=== PATIENT | female | born 1995 | race Caucasian/White ===

== ENCOUNTER 2021-11-18 06:56 | Emergency (ER) | payer OTHER ==
--- NOTE | 2021-11-18 07:13 | ED Physician Documentation ---
PD HPI URI - Stated complaint Stated Complaint: C+, CANT SWALLOW - Chief complaint Chief Complaint: General - History obtained from History obtained from: Patient - History of Present Illness Timing - onset: How many days ago (few) Timing duration: Days (few) Timing details: Abrupt onset, Still present Associated symptoms: Fever, Chills, Sore throat (this is her main symptom), Productive cough. No: Chest pain, Dyspnea, NVD Contributing factors: Sick contact (her had COVID a week ago or so, gotten from coworkers. Patient ill the past few days, presumed COVID. Went to [facility] ER for throat pain largely. Had positive COVID test. No Rx.) Similar symptoms before: Diagnosis (tested positive for COVID at [facility] ER 2 days ago.) Recently seen: Emergency Dept Review of Systems Constitutional: reports: Fever, Chills, Myalgias Nose: reports: Congestion Throat: reports: Sore throat, Swollen tonsils Cardiac: denies: Chest pain / pressure Respiratory: reports: Cough. denies: Dyspnea, Wheezing GI: denies: Nausea, Vomiting, Diarrhea : denies: Dysuria Skin: reports: Rash PD PAST MEDICAL HISTORY - Past Medical History Cardiovascular: None Respiratory: None Endocrine/Autoimmune: None - Present Medications Home Medications: Ambulatory Orders Medication Instructions Recorded Confirmed HYDROcod/ACETAM 5/325 [[place] 5/325] 1 ea PO Q6H PRN #18 tablet 11/18/21 dexAMETHasone [Decadron] 4 mg PO DAILY #6 tablet 11/18/21 diphenhydrAMINE ELIXIR [Benadryl 25 mg PO Q6H PRN #240 ml 11/18/21 Elixir] - Allergies Allergies/Adverse Reactions: Allergies Allergy/AdvReac Type Severity Reaction Status Date / Time No Known Drug Allergies Allergy Verified 11/18/21 07:13 PD ED PE NORMAL - Vitals Vital signs reviewed: Yes - General General: Alert and oriented X 3, No acute distress, Well developed/nourished - HEENT HEENT: Ears normal. No: Pharynx benign (very enlaged tonsils, almost touching in midline, without peritonsillar edema nor exudate. Tissue pink. ) - Neck Neck: Supple, no meningeal sign, Other (mild anterior nodes. ) - Cardiac Cardiac: RRR, No murmur - Respiratory Respiratory: Clear bilaterally - Abdomen Abdomen: Soft, Non tender, No organomegaly - Back Back: No CVA TTP - Derm Derm: Normal color, Warm and dry, No rash - Neuro Neuro: Alert and oriented X 3, No motor deficit, Normal speech Eye Opening: Spontaneous Motor: Obeys Commands Verbal: Oriented GCS Score: 15 Results - Vitals Vitals: Vital Signs - 24 hr 11/18/21 07:21 Temperature 36.3 C L Heart Rate 96 Respiratory 16 Rate Blood Pressure 127/85 H O2 Saturation 97 Oxygen O2 Source Room air - Labs Labs: Laboratory Tests 11/18/21 07:21 Group A Strep Rapid Negative PD MEDICAL DECISION MAKING - ED course Complexity details: re-evaluated patient (briefly discussed MAB, but she said she was okay. ), considered differential (has COVID, so most symptoms seem reasonably attributable to that. Has very sore throat and swollen tonsils, so can test separately for Strep to see if abx useful. Otherwise can Rx with steroids, liquid benadryl, Hydrocodone. ), d/w patient Departure - Departure Disposition: 01 Home, Self Care Clinical Impression: Pharyngitis with viral syndrome, COVID Condition: Stable Record reviewed to determine appropriate education?: Yes Instructions: ED Pharyngitis Viral Prescriptions: diphenhydrAMINE ELIXIR [Benadryl Elixir] 25 mg PO Q6H PRN #240 ml PRN Reason: Pain dexAMETHasone [Decadron] 4 mg PO DAILY #6 tablet HYDROcod/ACETAM 5/325 [[place] 5/325] 1 ea PO Q6H PRN #18 tablet PRN Reason: Pain Comments: Your rapid strep test is negative, so it doesn't seem there would be improvement from antibiotics for your symptoms. The swab we did today will be cultured as well and will result in couple of days; this would show if there is any non- Group A strep bacteria, and we will call you if it shows any bacterial growth. The Decadron steroid should help with the swelling of the tonsils and upper airways, onset through the day today and continue it for several days. Add Benadryl liquid (swallow it slowly so to have local effect in the throat) as needed. Tylenol every 4-6 hours for pain/fevers/aches. Add Hydrocodone as needed for worse pain. I would anticipate improvement over the next several days, but the pain from the tonsils should lessen through the day today. I transmitted you scripts to the pharmacy. I am prescribing a short course of narcotic pain medication for you. These are potentially dangerous and addictive medications that should be used carefully. These medications may constipate you. Take an yinp-[id number] stool softener such as docusate twice daily with plenty of water while taking these medications. If you go 24 hours without a bowel movement, take iyrx-[id number] MiraLAX, per package instructions. Do not drink or drive while taking these medications. If you received narcotic or sedating medications while in the emergency department do not drive for 24 hours. Store this medication in a safe, secure place and out of reach of children. It is a violation of federal law to give or sell this medication to another person or to use in a manner other than prescribed. The ED will not refill narcotic prescriptions, including prescriptions lost or stolen. You can dispose of unwanted medications at the [facility]'s office or at several pharmacies such as [facility]. Discharge Date/Time: 11/18/21 08:39
[2021-11-18] MEDS ORDERED: CHERRY SYRUP 10 ML UDC PO ONE (07:30)
[2021-11-18] MEDS ORDERED: diphenhydrAMINE ELIXIR 25 MG/10 ML UDC PO STA (07:30)
[2021-11-18] MEDS ORDERED: DEXAMETHASONE 10 MG/ML VIAL PO STA (07:30)
[2021-11-18] MEDS ORDERED: LIDOCAINE VISCOUS 2% 15 ML UDC MM STA (07:30)
[2021-11-18] MEDS ORDERED: HYDROcod/ACETAM 5/325 MG TABLET PO STA (07:33)
[2021-11-18 07:40] VITALS: BP 127/85
[2021-11-18 07:51] LABS: RAPID STREP SCREEN Negative (Negative)
== END 2021-11-18 08:39 | disposition home or self-care (01) ==
LOC: ED 06:56
DX: U07.1 COVID-19 (principal); B34.9 Viral infection, unspecified; J02.8 Acute pharyngitis due to other specified organisms
CPT/HCPCS: 87070; 87430; 99283; A9270

== ENCOUNTER 2022-09-26 20:05 | Emergency (ER) | payer OTHER ==
[2022-09-26] MEDS ORDERED: IBUPROFEN 600 MG TABLET PO STA (20:14)
[2022-09-26] MEDS ORDERED: DEXAMETHASONE 10 MG/ML VIAL PO STA (20:22)
[2022-09-26] MEDS ORDERED: SODIUM CHLORIDE 0.9% 1,000 ML IV STA (20:22)
[2022-09-26] MEDS ORDERED: CHERRY SYRUP 10 ML UDC PO ONE (20:22)
[2022-09-26] MEDS ORDERED: diphenhydrAMINE ELIXIR 25 MG/10 ML UDC PO STA (20:25)
--- NOTE | 2022-09-26 20:26 | ED Physician Documentation ---
History of Present Illness - Stated complaint Stated Complaint: CONGESTION/FEVER - Chief complaint Chief Complaint: General - Additonal information Additional information: 27-year-old female presents emergency department for evaluation of 3 days body aches headache chills and fever. Temperature of 39.2 on presentation. She reports a sore throat making swallowing difficult. She denies any cough abdominal pain nausea or vomiting. Denies possibility . She is vaccinated for COVID and had it in October 2021. She has chronically enlarged tonsils that always hurt when she gets sick. Review of Systems Constitutional: reports: Fever, Chills, Myalgias, Fatigue Nose: reports: Rhinorrhea / runny nose, Congestion Throat: reports: Sore throat, Swollen tonsils Respiratory: denies: Dyspnea, Cough GI: reports: Reviewed and negative : reports: Reviewed and negative Skin: reports: Reviewed and negative Musculoskeletal: denies: Neck pain PD PAST MEDICAL HISTORY - Past Medical History Cardiovascular: None Respiratory: None Neuro: None Endocrine/Autoimmune: None GI: None SEARCH OPTIMIZATION ANALYST: None : None HEENT: None Psych: None Musculoskeletal: None Derm: None - Past Surgical History Past Surgical History: No - Present Medications Home Medications: Ambulatory Orders Medication Instructions Recorded Confirmed No Known Home Medications 09/26/22 09/26/22 - Allergies Allergies/Adverse Reactions: Allergies Allergy/AdvReac Type Severity Reaction Status Date / Time No Known Drug Allergies Allergy Verified 09/26/22 20:15 - Social History Does the pt smoke?: No Smoking Status: Never smoker Does the pt drink ETOH?: No Does the pt have substance abuse?: No - Immunizations Immunizations are current?: Yes - POLST Patient has POLST: No PD ED PE NORMAL - General General: Alert and oriented X 3, No acute distress - HEENT HEENT: Ears normal (Left TM with erythema and small effusion), Moist mucous membranes. No: Pharynx benign (Kissing tonsils without exudate. Uvula is midline. No soft palate asymmetry or swelling.) - Neck Neck: No: No adenopathy (Small left-sided tender cervical lymph nodes are noted) - Cardiac Cardiac: RRR, No murmur - Respiratory Respiratory: No respiratory distress, Clear bilaterally - Abdomen Abdomen: Normal bowel sounds, Soft, Non tender - Back Back: No CVA TTP, No spinal TTP - Derm Derm: Normal color, Warm and dry - Extremities Extremities: No deformity - Neuro Neuro: Alert and oriented X 3, guest services lead 2-12 intact Eye Opening: Spontaneous Motor: Obeys Commands Verbal: Oriented GCS Score: 15 Results - Vitals Vitals: Vital Signs - 24 hr 09/26/22 09/26/22 20:13 21:18 Temperature 39.2 C H 37.7 C Heart Rate 128 H 109 H Respiratory 14 16 Rate Blood Pressure 120/76 116/65 O2 Saturation 97 98 Oxygen O2 Source Room air - Labs Labs: Laboratory Tests 09/26/22 09/26/22 20:11 20:37 Nasal Adenovirus (PCR) NOT DETECTED Nasal B. parapertussis DNA (PCR) NOT DETECTED Nasal Coronavir 229E PCR NOT DETECTED Nasal Coronavir HKU1 PCR NOT DETECTED Nasal Coronavir NL63 PCR NOT DETECTED Nasal Coronavir OC43 PCR NOT DETECTED Nasal Enterovir/Rhinovir PCR NOT DETECTED Nasal Influenza B PCR NOT DETECTED Nasal Influenza A PCR NOT DETECTED Nasal Parainfluen 1 PCR NOT DETECTED Nasal Parainfluen 2 PCR NOT DETECTED Nasal Parainfluen 3 PCR NOT DETECTED Nasal Parainfluen 4 PCR NOT DETECTED Nasal RSV (PCR) NOT DETECTED Nasal B.pertussis DNA PCR NOT DETECTED Nasal C.pneumoniae (PCR) NOT DETECTED Dung Human Metapneumo PCR NOT DETECTED Nasal M.pneumoniae (PCR) NOT DETECTED Nasal SARS-CoV-2 (PCR) NOT DETECTED Group A Strep Rapid Negative PD MEDICAL DECISION MAKING - ED course Complexity details: reviewed results, re-evaluated patient, considered differential, d/w patient ED course: This is a well-appearing though obese 27-year-old female who comes to the emergency department for 3 days of myalgias, fatigue, fever, sore throat, and headache. She has no cough vomiting diarrhea or urinary symptoms. On exam she presents febrile and tachycardic but otherwise well-appearing. She is normotensive. Cardiopulmonary auscultation was unremarkable with the exception of tachycardia. Her ENT exam reveals large red kissing tonsils but no exudate. There are some mild tender anterior cervical lymphadenopathy. She reports that she has chronically enlarged tonsils at baseline. Rapid strep was performed today and was negative. Will defer antibiotics unless culture is positive but given the pharyngitis component she was administered 10 mg of Decadron here in the emergency department. She also does have some small left- sided erythema of her ear as well as a small effusion. My suspicion for a bacterial otitis media is rather low though. I have given her a dose of Benadryl to help with congestion and eustachian tube dysfunction. We did obtain a respiratory PCR. I discussed with her that I felt she likely had a viral syndrome either influenza or possibly even COVID or RSV. We discussed the possibility of outpatient treatment for COVID with Paxlovid or Tamiflu should she be influenza positive but she has declined that at this time should she be positive. She simply would like to feel better therefore we are gave her some IV fluids, Benadryl and Decadron. On reevaluation she was feeling better with improved fever and tachycardia. She was dc home in stable condition. emergent return precautions discussed Departure - Departure Disposition: Home, Self Care Clinical Impression: Flu-like symptoms, Febrile illness, acute Condition: Stable Record reviewed to determine appropriate education?: Yes Comments: Chani you are seen today in the emergency department because for a few days you have had some body aches fevers chills headache and a sore throat. I suspect you have a viral or flulike illness. I will call you in the morning with any pertinent positive results on the respiratory PCR panel. Here in the emergency department we gave you some IV fluids Benadryl and ibuprofen and your vital signs seem to have improved and you are feeling better. Over the next few days I do recommend that you take Benadryl 50 mg once or twice daily. This will help with congestion and help reduce the effusion behind your left ear. I would also drink plenty of fluids. You can take 600 mg of ibuprofen 2-3 times a day for fever and body aches or alternate with 500 mg of Tylenol. We did discuss the possibility that should you have a positive influenza or COVID result you could be a candidate for outpatient oral antiviral therapy but you have declined this which I think is reasonable given that you are otherwise healthy. If at any point you find that your symptoms are worsening, you have fainting episodes, severe chest pain or shortness of air please return immediately to the ER for a second evaluation Discharge Date/Time: 09/26/22 21:18
[2022-09-26 20:52] LABS: RAPID STREP SCREEN Negative (Negative)
[2022-09-26 21:14] LABS: CORONAVIRUS 229E-RESP PCR NOT DETECTED; CORONAVIRUS HKU1-RESP PCR NOT DETECTED; CORONAVIRUS NL63-RESP PCR NOT DETECTED; CORONAVIRUS OC43-RESP PCR NOT DETECTED; HUMAN METAPNEUMOVIRUS NOT DETECTED; RHINOVIRUS/ENTEROVIRUS NOT DETECTED; SARS-CoV-2 -RESP PCR PANEL NOT DETECTED
[2022-09-26 21:15] LABS: B. PARAPERTUSSIS- RESP PCR PAN NOT DETECTED; B. PERTUSSIS- RESP PCR PANEL NOT DETECTED; C. PNEUMONIAE- RESP PCR PANEL NOT DETECTED; INFLUENZA A- RESP PCR PANEL NOT DETECTED; INFLUENZA B - RESP PCR PANEL NOT DETECTED; M. PNEUMONIAE- RESP PCR PANEL NOT DETECTED; PARAINFLUENZA VIRUS 1 NOT DETECTED; PARAINFLUENZA VIRUS 2 NOT DETECTED; PARAINFLUENZA VIRUS 3 NOT DETECTED; PARAINFLUENZA VIRUS 4 NOT DETECTED; RSV- RESP PCR PANEL NOT DETECTED
[2022-09-26 21:19] VITALS: BP 116/65
== END 2022-09-26 21:18 | disposition home or self-care (01) ==
LOC: ED 20:05
DX: R50.9 Fever, unspecified (principal); J02.9 Acute pharyngitis, unspecified; R51.9 Headache, unspecified; R00.0 Tachycardia, unspecified; R53.83 Other fatigue; M79.10 Myalgia, unspecified site; H69.82 Other specified disorders of Eustachian tube, left ear
CPT/HCPCS: 87070; 87430; 87633; 99282; 99283; A9270

== ENCOUNTER 2022-12-12 08:00 | Outpatient (CLI) | payer OTHER ==
[2022-12-12 16:26] LABS: BILIRUBIN,URINE NEGATIVE (NEGATIVE); GLUCOSE, URINE (UA) 500 mg/dL (NEGATIVE); KETONES,URINE (UA) NEGATIVE (NEGATIVE); LEUKOCYTE ESTERASE, URINE NEGATIVE (NEGATIVE); NITRITE,URINE NEGATIVE (NEGATIVE); OCCULT BLOOD,URINE NEGATIVE (NEGATIVE); PROTEIN,URINE NEGATIVE (NEGATIVE); UROBILINOGEN,URINE 0.2 (NORMAL) E.U./dL (NORMAL)
[2022-12-12 16:49] LABS: CLARITY,URINE HAZY (CLEAR)
[2022-12-12 16:50] LABS: BACTERIA,URINE Few /HPF (None Seen); RBC,URINE 0-5 /HPF (0-5); SQUAMOUS EPITHELIAL CELL,UR FEW Squamous (<= Few); WBC,URINE 0-3 /HPF (0-5)
== END 2022-12-12 23:59 | disposition home or self-care (01) ==
LOC: LAB.WC 08:00
PROVIDERS: ATTEND Obstetrics & Gynecology
DX: Z34.90 Encounter for supervision of normal pregnancy, unspecified, unspecified trimester (principal)
CPT/HCPCS: 81001; 87086

== ENCOUNTER 2022-12-16 09:28 | Outpatient (CLI) | payer OTHER ==
[2022-12-16 12:11] LABS: BASOPHILS # (AUTO) 0.1 10^3/uL (0.0-0.1); BASOPHILS % (AUTO) 0.5 %; EOSINOPHILS # (AUTO) 0.3 10^3/uL (0.0-0.7); EOSINOPHILS % (AUTO) 2.2 %; HCT - HEMATOCRIT 42.2 % (37.0-47.0); HGB - HEMOGLOBIN 13.2 g/dL (12.0-16.0); LYMPHOCYTES % (AUTO) 23.1 %; MEAN CORPUSCULAR HEMOGLOBIN 25.7 pg (27.0-31.0); MEAN CORPUSCULAR HGB CONC 31.3 g/dL (32.0-36.0); MEAN CORPUSCULAR VOLUME 82.3 fL (81.0-99.0); MONOCYTES # (AUTO) 0.9 10^3/uL (0.0-1.0); MONOCYTES % (AUTO) 6.9 %; NEUTROPHILS # (AUTO) 8.7 10^3/uL (1.5-6.6); NEUTROPHILS % (AUTO) 66.8 %; PLT - PLATELET COUNT 336 10^3/uL (130-450); RED BLOOD COUNT 5.13 10^6/uL (4.20-5.40)
[2022-12-17 06:09] LABS: HBsAG SCREEN Negative (Negative)
[2022-12-17 08:10] LABS: HCV AB <0.1 s/co ratio (0.0-0.9); VARICELLA-ZOSTER AB IGG 1061 index (Immune >165)
[2022-12-17 09:10] LABS: RPR Non Reactive (Non Reactive)
[2022-12-18 00:08] LABS: HIV SCREEN 4TH GENERATION Non Reactive (Non Reactive)
== END 2022-12-16 09:29 | disposition home or self-care (01) ==
LOC: LAB.N 09:28
PROVIDERS: ATTEND Obstetrics & Gynecology
DX: Z34.90 Encounter for supervision of normal pregnancy, unspecified, unspecified trimester (principal)
CPT/HCPCS: 36415; 85025; 86592; 86762; 86787; 86803; 86850; 86900; 86901; 87340; 87389

== ENCOUNTER 2022-12-31 22:05 | Outpatient (CLI) | payer OTHER ==
--- NOTE | 2023-01-01 08:45 | Ultrasound Report ---
PROCEDURE: OB First Trimester w/TV INDICATIONS: POSITIVE TEST OUTSIDE/PRIOR DATING DATA: Last menstrual period (LMP): 10/12/2022. LMP-based estimated date of delivery (SHELBY): 07/19/2023. First dating scan (date and location): To 723. Estimated date of delivery (SHELBY) from first dating scan: 07/19/2023. The below data below was generated using the study generated SHELBY of 07/19/2023 TECHNIQUE: Real-time scanning was performed of the fetus and maternal pelvic organs, with image documentation. Endovaginal scanning was also performed to better visualize the fetus and maternal ovaries. COMPARISON: None FINDINGS: Embryo: Single intrauterine gestational sac is seen with fetus seen. Wilkerson-rump length measures 4.66 cm. Estimated gestational age is 11 weeks, 3 days. Heart rate: 162 bpm. There is a small subchorionic hemorrhage measures 1.97 x 1.74 x 3.01 cm in size. Measurement variability in dating: +/- 4 weeks by LMP, +/- 7 days by mean sac diameter (use before 6 weeks gestation if crown-rump length not able to be measured), +/- 5 days by crown-rump length (6-12 weeks gestation). Maternal organs: Ovaries the visualized and are within normal limits. A left-sided corpus luteum is noted and measures 2.4 x 1.9 x 2.1 cm in size.. IMPRESSION: 1. Single live intrauterine gestation with fetus seen. heart rate is 162 bpm. Estimated gestati onal age is 11 weeks, 3 days. 2. Small subchorionic hemorrhage as above. 3. Left-sided corpus luteum as above. Reviewed by: Sj Diaz MD on 01/01/2023 8:43 AM PST Approved by: Sj Diaz MD on 01/01/2023 8:43 AM PST Station ID: [id number]
== END 2022-12-31 22:06 | disposition home or self-care (01) ==
LOC: DI 22:05
PROVIDERS: ATTEND Obstetrics & Gynecology
DX: O20.9 Hemorrhage in early pregnancy, unspecified (principal); O34.81 Maternal care for other abnormalities of pelvic organs, first trimester; N83.12 Corpus luteum cyst of left ovary; Z3A.11 11 weeks gestation of pregnancy

== ENCOUNTER 2023-01-06 09:07 | Outpatient (CLI) | payer OTHER | END 2023-01-06 09:08 | disposition home or self-care (01) | LOC: LAB.N 09:07 | PROVIDERS: ATTEND Obstetrics & Gynecology | DX: E66.01 Morbid (severe) obesity due to excess calories (principal); Z86.32 Personal history of gestational diabetes | CPT/HCPCS: 36415; 82950 ==

== ENCOUNTER 2023-02-27 11:44 | Outpatient (CLI) | payer OTHER ==
[2023-03-01 20:07] LABS: AFP MOM 0.82 (.); AFP VALUE 37.4 ng/mL (.); DIA MOM 0.96 (.); DIA VALUE 136.86 pg/mL (.); DSR (BY AGE) 1 IN 835 (.); DSR (SECOND TRIMESTER) 1 IN 3328 (.); GEST. AGE ON COLLECTION DATE 19.7 WEEKS (.); HCG MOM 1.56 (.); HCG VALUE 32605 mIU/mL (.); INSULIN DEP DIABETES No (.); MATERNAL AGE AT EDD 28.3 yr (.); MULTIPLE GESTATION No (.); OPEN SPINA BIFIDA RISK 1 IN 10000 (.); RACE Caucasian (.); RESULTS Report (.); TEST RESULTS *Screen Negative* (.); TRISOMY 18 RISK Not increased (.); UE3 MOM 1.02 (.); UE3 VALUE 1.94 ng/mL (.); WEIGHT 208 lbs (.)
== END 2023-02-27 11:45 | disposition home or self-care (01) ==
LOC: LAB 11:44
PROVIDERS: ATTEND Obstetrics & Gynecology
DX: O09.892 Supervision of other high risk pregnancies, second trimester (principal)
CPT/HCPCS: 36415; 81511

== ENCOUNTER 2023-03-04 12:39 | Outpatient (CLI) | payer OTHER ==
--- NOTE | 2023-03-04 15:36 | Ultrasound Report ---
PROCEDURE: OB Detailed Eval INDICATIONS: SUPERVISION OF OUTSIDE/PRIOR DATING DATA: Last menstrual period (LMP): 10/12/2022. LMP-based estimated date of delivery (SHELBY): 07/19/2023. First dating scan (date and location): 12/31/2022. Estimated date of delivery (SHELBY) from first dating scan: 07/19/2023. The below data below was generated using the ultrasound SHELBY of 07/19/2023 TECHNIQUE: Real-time scanning was performed of the fetus, with image documentation and biometric measurements. Endovaginal scanning: Not performed COMPARISON: 12/31/2022 FINDINGS: General: A single living intrauterine gestation is present. Presentation: Variable Placenta: Placental position is anterior, without previa. Amniotic fluid index: 14.5 cm, 53rd percentile for gestational age. heart rate: 153 beats per minute. Maternal cervical canal: 6.1 cm long; normal length is 2.5 cm or more. biometrics: Biparietal diameter: 4.7 cm, 20 weeks 1 day Head circumference: 17.2 cm, 19 weeks 6 days Abdominal circumference: 14.9 cm, 20 weeks 1 day Femur length: 3.2 centers, 20 weeks Estimated gestational age from initial scan: 20 weeks 3 days. Composite gestational age from present scan: 20 weeks 0 days Estimated weight and percentile: 332 g, 20th percentile Measurement variability in biometric dating: +/- 10 days from 12-20 weeks gestation, +/- 2 weeks from 20-30 weeks gestation, +/- 3 weeks at 30 weeks gestation or later. Anatomic survey: Neuro: Ventricles are normal at less than 10 mm. Cisterna magna is normal at 3-11 mm. Cerebellum i s normal in size and morphology. Nuchal skin fold: Normal at less than 6 mm between 14 and 20 weeks gestational age. Face: Nose and lips, facial profile are normal. Spine: No evidence for spina bifida. Heart: Not well visualized Diaphragm: Diaphragm is intact. Stomach: Left-sided stomach is present. Kidneys: No hydronephrosis. Normal is less than 5 mm in 2nd trimester, less than 7 mm in 3rd trimester. Cord: 3 vessel cord has orthotopic insertion. Bladder: Normal in size. Extremities: All 4 extremities are visualized. IMPRESSION: Single living intrauterine at 20 weeks 3 days, SHELBY of 07/19/2023. cardiac structures not visualized due to position. Short-term follow-up recommended. Othe rwise, normal ultrasound. Reviewed by: Dwight Cassidy on 03/04/2023 3:35 PM PDT Approved by: Dwight Cassidy on 03/04/2023 3:35 PM PDT Station ID: [id number]
== END 2023-03-04 12:40 | disposition home or self-care (01) ==
LOC: DI 12:39
PROVIDERS: ATTEND Obstetrics & Gynecology
DX: O09.892 Supervision of other high risk pregnancies, second trimester (principal); Z3A.20 20 weeks gestation of pregnancy

== ENCOUNTER 2023-03-20 11:31 | Outpatient (CLI) | payer OTHER ==
--- NOTE | 2023-03-20 13:35 | Ultrasound Report ---
PROCEDURE: OB F/U or Repeat INDICATIONS: SUPERVISION OF OUTSIDE/PRIOR DATING DATA: Last menstrual period (LMP): 10/12/2022. LMP-based estimated date of delivery (SHELBY): 07/19/2023. First dating scan (date and location): 12/31/2022. Estimated date of delivery (SHELBY) from first dating scan: 07/19/2023 (working SHELBY). TECHNIQUE: Real-time scanning was performed of the fetus, with image documentation COMPARISON: 03/04/2023 FINDINGS: General: A single living intrauterine gestation is present. Presentation: Breech Placenta: Placental position is anterior, without previa. Amniotic fluid index: 14.4 cm, within normal limits heart rate: 155 beats per minute. Maternal cervical canal: 4.3 cm long; normal length is 2.5 cm or more. Estimated gestational age on current scan is 22 weeks and 5 days. Right ovary is not well seen on toran gan's study. Cardiac structures are well seen. Other: Not applicable. IMPRESSION: Living intrauterine gestation with working SHELBY of 07/19/2023. Four-chamber view and outfl ow tracts are seen on today's study, completing anatomic survey. Reviewed by: Nikunj Tapia MD on 03/20/2023 1:34 PM PDT Approved by: Nikunj Tapia MD on 03/20/2023 1:34 PM PDT Station ID: [id number]
== END 2023-03-20 11:32 | disposition home or self-care (01) ==
LOC: DI 11:31
PROVIDERS: ATTEND Obstetrics & Gynecology
DX: O09.892 Supervision of other high risk pregnancies, second trimester (principal); O32.1XX0 Maternal care for breech presentation, not applicable or unspecified; Z3A.22 22 weeks gestation of pregnancy

== ENCOUNTER 2023-05-26 08:15 | Outpatient (CLI) | payer OTHER ==
--- NOTE | 2023-05-27 10:43 | Ultrasound Report ---
PROCEDURE: OB Biophysical Profile INDICATIONS: GESTATIONAL DIABETES OUTSIDE/PRIOR DATING DATA: Last menstrual period (LMP): 10/12/2022. LMP-based estimated date of delivery (SHELBY): 07/19/2023. First dating scan (date and location): 12/31/2022. Estimated date of delivery (SHELBY) from first dating scan: 07/19/2023. The below data below was generated using the working SHELBY of 07/19/2023 TECHNIQUE: Real-time scanning was performed of the fetus, with image documentation and biometric moni surements. Biophysical profile was also obtained. COMPARISON: OB ultrasound, 03/20/2023, 03/04/2023 and 12/31/2022. FINDINGS: General: A single living intrauterine gestation is present. Presentation: Transverse, head to the maternal left Placenta: Placental position is anterior, without previa. Amniotic fluid index: 15.4 cm; largest pocket 4.49 cm. heart rate: 147 beats per minute. Maternal cervical canal: Closed measuring 4.6 cm long; normal length is 2.5 cm or more. biometrics: Biparietal diameter: 33 weeks 4 days Head circumference: 33 weeks 4 days Abdominal circumference: 33 weeks 3 days Femur length: 31 weeks 4 days Estimated gestational age from initial scan: 32 weeks 2 days. Composite gestational age from present scan: 32 weeks 4 days Estimated weight and percentile: 2047 g; 55.5% Measurement variability in biometric dating: +/- 10 days from 12-20 weeks gestation, +/- 2 weeks from 20-30 weeks gestation, +/- 3 weeks at 30 weeks gestation or later. Biophysical profile: Tone: 2 points. Movement: 2 points. Respiration: 2 points. Largest pocket of fluid: 2 points. IMPRESSION: 1. Single living IUP with appropriate interval growth. 2. The estimated weight is 2047 g, 55.5% for gestational age. 3. biophysical profile score 8 out of 8. 4. Normal LISA. Reviewed by: Timothy Solis MD on 05/27/2023 10:42 AM PDT Approved by: Timothy Solis MD on 05/27/2023 10:42 AM PDT Station ID: [id number]
== END 2023-05-26 08:16 | disposition home or self-care (01) ==
LOC: DI 08:15
PROVIDERS: ATTEND Obstetrics & Gynecology
DX: O24.419 Gestational diabetes mellitus in pregnancy, unspecified control (principal); Z3A.32 32 weeks gestation of pregnancy

== ENCOUNTER 2023-05-26 09:15 | Outpatient (CLI) | payer OTHER ==
--- NOTE | 2023-05-27 10:48 | Ultrasound Report ---
PROCEDURE: OB F/U or Repeat INDICATIONS: GESTATIONAL DIABETES OUTSIDE/PRIOR DATING DATA: Last menstrual period (LMP): 10/12/2022. LMP-based estimated date of delivery (SHELBY): 07/19/20. First dating scan (date and location): 12/31/2022. Estimated date of delivery (SHELBY) from first dating scan: 07/131023. The below data below was generated using the working SHELBY of 07/19/2023 TECHNIQUE: Real-time scanning was performed of the fetus, with image documentation and biometric measurements. Endovaginal scanning: Not performed. COMPARISON: OB ultrasound, 03/20/2023, 03/04/2023 and 12/31/2022. FINDINGS: FINDINGS: General: A single living intrauterine gestation is present. Presentation: Transverse, head to the maternal left Placenta: Placental position is anterior, without previa. Amniotic fluid index: 15.4 cm; largest pocket 4.49 cm. heart rate: 147 beats per minute. Maternal cervical canal: Closed measuring 4.6 cm long; normal length is 2.5 cm or more. biometrics: Biparietal diameter: 33 weeks 4 days Head circumference: 33 weeks 4 days Abdominal circumference: 33 weeks 3 days Femur length: 31 weeks 4 days Estimated gestational age from initial scan: 32 weeks 2 days. Composite gestational age from present scan: 32 weeks 4 days Estimated weight and percentile: 2047 g; 55.5% Measurement variability in biometric dating: +/- 10 days from 12-20 weeks gestation, +/- 2 weeks from 20-30 weeks gestation, +/- 3 weeks at 30 weeks gestation or later. IMPRESSION: 1. Single living IUP with appropriate interval growth. 2. The estimated weight is 2047 g, 55.5% for gestational age. 3. Normal LISA. Reviewed by: Timothy Solis MD on 05/27/2023 10:47 AM PDT Approved by: Timothy Solis MD on 05/27/2023 10:47 AM PDT Station ID: [id number]
== END 2023-05-26 23:59 | disposition home or self-care (01) ==
LOC: DI 09:15
PROVIDERS: ATTEND Obstetrics & Gynecology
DX: O24.419 Gestational diabetes mellitus in pregnancy, unspecified control (principal); Z3A.32 32 weeks gestation of pregnancy

== ENCOUNTER 2023-05-29 16:39 | Outpatient (CLI) | payer OTHER ==
[2023-05-29 16:58] VITALS: BP 98/55
--- NOTE | 2023-05-29 17:23 | PROCEDURE REPORT ---
- HPI Current EDU 07/19/23 Gestation 32 Weeks and 5 Days 4 Para 3 Vital Signs Temperature 98 F 05/29/23 16:54 Heart Rate 93 05/29/23 16:54 Respiratory Rate 18 05/29/23 16:54 Blood Pressure 98/55 L 05/29/23 16:54 O2 Saturation 100 05/29/23 16:54 Temperature 98 F 05/29/23 16:54 Heart Rate 93 05/29/23 16:54 Respiratory Rate 18 05/29/23 16:54 Blood Pressure 98/55 L 05/29/23 16:54 O2 Saturation 100 05/29/23 16:54 If not protocol: Oxygen Flow, liters/minute - NST Procedure NST Procedure Start Date 05/29/23 Start Time 16:50 Vibroacoustic Stimulation Used No Patient States Movement Yes - Results and Plan Plan: Patient is a 28-year-old -0-0-3 at 32 weeks 5 days gestation here for scheduled NST. NST Performed 05/29/2023 NST Read 05/29/2023 FHT: 145 bpm baseline, moderate variability, accelerations present, no decelerations. Reactive NST Birney: Quiescent Diagnosis 32 weeks gestation Gestational diabetes Continue with twice-weekly NST.
== END 2023-05-29 17:15 | disposition home or self-care (01) ==
LOC: WFO 16:39 → FBP 16:41 → WFO 17:15
PROVIDERS: ATTEND Obstetrics & Gynecology
DX: O24.419 Gestational diabetes mellitus in pregnancy, unspecified control (principal); Z3A.32 32 weeks gestation of pregnancy
CPT/HCPCS: 59025

== ENCOUNTER 2023-06-05 09:00 | Outpatient (CLI) | payer OTHER ==
[2023-06-05 09:31] VITALS: BP 105/52
--- NOTE | 2023-06-05 17:50 | PROCEDURE REPORT ---
- HPI Diagnosis/Indication for NST: Gestational Diabetes Current EDU 07/19/23 Gestation 33 Weeks and 5 Days 4 Para 3 Vital Signs Temperature 98.1 F 06/05/23 09:17 Heart Rate 72 06/05/23 09:17 Respiratory Rate 18 06/05/23 09:17 Blood Pressure 105/52 L 06/05/23 09:17 Temperature 98.1 F 06/05/23 09:40 Heart Rate 72 06/05/23 09:40 Respiratory Rate 18 06/05/23 09:40 Blood Pressure 105/52 L 06/05/23 09:40 O2 Saturation If not protocol: Oxygen Flow, liters/minute - NST Procedure NST Procedure Start Date 06/05/23 Start Time 09:11 Stop Time 09:35 Vibroacoustic Stimulation Used No Patient States Movement Yes - Results and Plan Plan: Patient is a 28-year-old -0-0-3 at 33 weeks 5 days gestation here for kerrie eduled NST. NST Performed 06/05/2023 NST Read 06/05/2023 FHT: 140 bpm baseline, moderate variability, accelerations present, no decelerations. Reactive NST Tavares: Quiescent Diagnosis 33 weeks gestation Gestational diabetes Continue with twice-weekly NST.
== END 2023-06-05 09:57 | disposition home or self-care (01) ==
LOC: WFO 09:00 → FBP 09:02 → WFO 09:57
PROVIDERS: ATTEND Obstetrics & Gynecology
DX: O24.419 Gestational diabetes mellitus in pregnancy, unspecified control (principal); Z3A.33 33 weeks gestation of pregnancy
CPT/HCPCS: 59025

== ENCOUNTER 2023-06-09 16:03 | Outpatient (CLI) | payer OTHER ==
--- NOTE | 2023-06-10 10:36 | Ultrasound Report ---
PROCEDURE: OB Biophysical Profile INDICATIONS: GESTATIONAL DIABETES OUTSIDE/PRIOR DATING DATA: Last menstrual period (LMP): 10/12/2022. LMP-based estimated date of delivery (SHELBY): 07/19/2023. First dating scan (date and location): 12/31/2022 Estimated date of delivery (SHELBY) from first dating scan: 07/19/2023. The below data below was generated using the ultrasound SHELBY of 07/19/2023 TECHNIQUE: Real-time scanning was performed of the fetus, with image documentation. Biophysical pro file was also obtained. Endovaginal scanning: Not performed. COMPARISON: OB ultrasound 06/02/2023 FINDINGS: General: A single living intrauterine gestation is present. Presentation: Transverse, head to maternal right Placenta: Placental position is anterior, without previa. Amniotic fluid index: 16.7 cm, normal for gestational age. heart rate: 145 beats per minute. Maternal cervical canal: Closed. Estimated gestational age from initial scan: 34 weeks 2 days. Biophysical profile: Tone: 2 points. Movement: 2 points. Respiration: 2 points. Largest pocket of fluid: 2 points. Umbilical artery Doppler: Systolic/diastolic ratio 2.6 of the cord insertion, 3.3 at the midpo rtion, and 2.3 at the placental insertion IMPRESSION: 1.Single live intrauterine . 2.Biophysical profile score 8 of 8. 3.Umbilical artery Doppler is within normal limits with preserved diastolic flow. Reviewed by: Rosalino Francois MD on 06/10/2023 10:35 AM PDT Approved by: Rosalino Francois MD on 06/10/2023 10:35 AM PDT Station ID: [id number]
== END 2023-06-09 16:04 | disposition home or self-care (01) ==
LOC: DI 16:03
PROVIDERS: ATTEND Obstetrics & Gynecology
DX: O24.419 Gestational diabetes mellitus in pregnancy, unspecified control (principal); Z3A.34 34 weeks gestation of pregnancy

== ENCOUNTER 2023-06-09 16:54 | Outpatient (CLI) | payer OTHER ==
[2023-06-09 17:16] VITALS: BP 108/53
--- NOTE | 2023-06-10 09:55 | PROCEDURE REPORT ---
- HPI Diagnosis/Indication for NST: Gestational Diabetes Current EDU 07/19/23 Gestation 34 Weeks and 2 Days 4 Para 3 Vital Signs Temperature 98.2 F 06/09/23 17:08 Heart Rate 73 06/09/23 17:08 Respiratory Rate 16 06/09/23 17:08 Blood Pressure 108/53 L 06/09/23 17:08 Temperature 98.2 F 06/09/23 17:08 Heart Rate 73 06/09/23 17:08 Respiratory Rate 16 06/09/23 17:08 Blood Pressure 108/53 L 06/09/23 17:08 O2 Saturation If not protocol: Oxygen Flow, liters/minute - NST Procedure NST Procedure Start Date 06/09/23 Start Time 17:00 Stop Time 17:25 Vibroacoustic Stimulation Used No Patient States Movement Yes 34+2 Gestational diabetes reactive NST 140, moderate variability, +accels, no decels
== END 2023-06-09 17:35 | disposition home or self-care (01) ==
LOC: WFO 16:54 → FBP 16:55 → WFO 17:35
PROVIDERS: ATTEND Obstetrics & Gynecology Obstetrics
DX: O24.419 Gestational diabetes mellitus in pregnancy, unspecified control (principal); Z3A.34 34 weeks gestation of pregnancy
CPT/HCPCS: 59025

== ENCOUNTER 2023-06-16 16:00 | Outpatient (CLI) | payer OTHER ==
--- NOTE | 2023-06-17 15:58 | Ultrasound Report ---
PROCEDURE: OB Biophysical Profile INDICATIONS: GESTATIONAL DIABETES OUTSIDE/PRIOR DATING DATA: Last menstrual period (LMP): 10/12/2022. LMP-based estimated date of delivery (SHELBY): 07/19/2023. First dating scan (date and location): 12/31/2022. Estimated date of delivery (SHELBY) from first dating scan: 07/19/2023. The below data below was generated using the ultrasound/clinical SHELBY of 07/19/2023 TECHNIQUE: Real-time scanning was performed of the fetus, with image documentation and biometric moni surements. Biophysical profile was also obtained. COMPARISON: OB ultrasound 06/09/2023 FINDINGS: General: A single living intrauterine gestation is present. Presentation: Vertex Placenta: Placental position is anterior, without previa. Amniotic fluid index: 18.9 cm, upper limits of normal for gestational age. heart rate: 133 beats per minute. Maternal cervical canal: 6 cm long; normal length is 2.5 cm or more. biometrics: Estimated gestational age from initial scan: 35 2 days +/- 10 days from 12-20 weeks gestation, +/- 2 weeks from 20-30 weeks gestation, +/- 3 weeks at 30 wee ks gestation or later. Biophysical profile: Tone: 2 points. Movement: 2 points. Respiration: 2 points. Largest pocket of fluid: 2 points. Umbilical artery Doppler: 2.1, 2.4, 2.4 IMPRESSION: Single live intrauterine patency with ultrasound gestational age of 35 weeks 2 days. LISA 18.9 cm. Reviewed by: Amber Jay MD on 06/17/2023 3:57 PM PDT Approved by: Amber Jay MD on 06/17/2023 3:57 PM PDT Station ID: [id number]
== END 2023-06-16 16:01 | disposition home or self-care (01) ==
LOC: DI 16:00
PROVIDERS: ATTEND Obstetrics & Gynecology
DX: O24.419 Gestational diabetes mellitus in pregnancy, unspecified control (principal); Z3A.35 35 weeks gestation of pregnancy

== ENCOUNTER 2023-06-16 16:44 | Outpatient (CLI) | payer OTHER ==
[2023-06-16 19:46] VITALS: BP 90/39
--- NOTE | 2023-06-17 19:16 | PROCEDURE REPORT ---
- HPI Diagnosis/Indication for NST: Gestational Diabetes Current EDU 07/19/23 Gestation 35 Weeks and 2 Days 4 Para 3 Vital Signs Temperature 98 F 06/16/23 17:12 Heart Rate 74 06/16/23 17:12 Respiratory Rate 18 06/16/23 17:12 Blood Pressure 90/39 L 06/16/23 17:12 O2 Saturation 100 06/16/23 17:12 Temperature 97.5 F L 06/16/23 19:28 Heart Rate 74 06/16/23 19:28 Respiratory Rate 18 06/16/23 19:28 Blood Pressure 90/39 L 06/16/23 19:28 O2 Saturation 100 06/16/23 17:12 If not protocol: Oxygen Flow, liters/minute - NST Procedure NST Procedure Start Date 06/16/23 Start Time 17:02 Stop Time 17:55 Vibroacoustic Stimulation Used No Patient States Movement Yes EFM: 140s, moderate variability, positive 15x15 accelerations, no decelerations [place]: no contractions NST reactive/Cat 1 Performed and read 06/16/23 - Results and Plan Findings/Impression: 28yo at 35.3w presenting for scheduled NST for GDM - NST reactive - Follow up as scheduled
== END 2023-06-16 18:10 | disposition home or self-care (01) ==
LOC: WFO 16:44 → FBP 16:45 → WFO 18:10
PROVIDERS: ATTEND Obstetrics & Gynecology
DX: O24.414 Gestational diabetes mellitus in pregnancy, insulin controlled (principal); Z3A.35 35 weeks gestation of pregnancy
CPT/HCPCS: 59025

== ENCOUNTER 2023-06-19 08:00 | Outpatient (CLI) | payer OTHER | END 2023-06-19 23:59 | disposition home or self-care (01) | LOC: LAB.WC 08:00 | PROVIDERS: ATTEND Obstetrics & Gynecology | DX: Z36.85 Encounter for antenatal screening for Streptococcus B (principal) | CPT/HCPCS: 87797 ==

== ENCOUNTER 2023-06-19 14:17 | Outpatient (CLI) | payer OTHER ==
[2023-06-19 15:25] VITALS: BP 105/56
--- NOTE | 2023-06-19 18:58 | PROCEDURE REPORT ---
- HPI Diagnosis/Indication for NST: Gestational Diabetes Vital Signs Temperature 98.1 F 06/19/23 15:21 Heart Rate 64 06/19/23 15:21 Respiratory Rate 16 06/19/23 15:21 Blood Pressure 105/56 L 06/19/23 15:21 Temperature 98.1 F 06/19/23 15:21 Heart Rate 64 06/19/23 15:21 Respiratory Rate 16 06/19/23 15:21 Blood Pressure 105/56 L 06/19/23 15:21 O2 Saturation If not protocol: Oxygen Flow, liters/minute - NST Procedure NST Procedure Start Time 17:02 Stop Time 17:55 35+5 weeks Reactive NST 140, moderate variability, +accels, no decels - Results and Plan Plan: reactive NST at 35+5
== END 2023-06-19 15:35 | disposition home or self-care (01) ==
LOC: WFO 14:17 → FBP 14:21 → WFO 15:35
PROVIDERS: ATTEND Obstetrics & Gynecology Obstetrics
DX: O24.414 Gestational diabetes mellitus in pregnancy, insulin controlled (principal); Z3A.35 35 weeks gestation of pregnancy
CPT/HCPCS: 59025

== ENCOUNTER 2023-06-24 16:30 | Outpatient (CLI) | payer OTHER ==
--- NOTE | 2023-07-09 04:32 | Ultrasound Report ---
PROCEDURE: OB Biophysical Profile INDICATIONS: GESTATIONAL DIABETES OUTSIDE/PRIOR DATING DATA: Last menstrual period (LMP): 10/12/2022. LMP-based estimated date of delivery (SHELBY): 07/19/2023. First dating scan (date and location): 12/31/2022. Estimated date of delivery (SHELBY) from first dating scan: 07/19/2023. TECHNIQUE: Real-time scanning was performed of the fetus, with image documentation and biometric moni surements. Biophysical profile was also obtained. COMPARISON: Prior OB ultrasound dated 06/18/2023 FINDINGS: General: A single living intrauterine gestation is present. Presentation: Vertex Placenta: Placental position is anterior, without previa. Amniotic fluid index: 10.4 cm cm, normal for gestational age. heart rate: 155 beats per minute. Maternal cervical canal: 5.4 cm long; normal length is 2.5 cm or more. biometrics: Biparietal diameter: 34 weeks 4 days Head circumference: 34 weeks 3 days Abdominal circumference: 36 weeks 3 days Femur length: 35 weeks 1 day Estimated gestational age from initial scan: 36 weeks 3 days Composite gestational age from present scan: 35 weeks 1 day Estimated weight and percentile: 274 7 g, 33rd percentile Measurement variability in biometric dating: +/- 10 days from 12-20 weeks gestation, +/- 2 weeks from 20-30 weeks gestation, +/- 3 weeks at 30 weeks gestation or later. Biophysical profile: Tone: 2 points. Movement: 2 points. Respiration: 2 points. Largest pocket of fluid: 2 points. Umbilical artery Doppler: Normal ratios ranging between 2.0, 2.8 IMPRESSION: 1. Single living IUP redemonstrated with age estimated at 34 weeks 2 days by prior ultrasound. 2. Normal biophysical profile with score of 8 out of 8 possible points and normal cord Doppler. Reviewed by: DARIO London on 06/25/2023 9:46 AM PDT Approved by: Allie Isabel MD on 06/25/2023 9:46 AM PDT Station ID: [id number]
--- NOTE | 2023-07-09 04:32 | Ultrasound Report ---
PROCEDURE: OB F/U or Repeat INDICATIONS: GESTATIOANL DIABETES OUTSIDE/PRIOR DATING DATA: Last menstrual period (LMP): 10/12/2022. LMP-based estimated date of delivery (SHELBY): 07/19/2023. First dating scan (date and location): 12/31/2022. Estimated date of delivery (SHELBY) from first dating scan: 07/19/2023. TECHNIQUE: Real-time scanning was performed of the fetus, with image documentation and biometric measurements. Endovaginal scanning: Not performed. COMPARISON: Prior OB ultrasound dated 06/18/2023 FINDINGS: General: A single living intrauterine gestation is present. Presentation: Vertex Placenta: Placental position is anterior, without previa. Amniotic fluid index: 10.4 cm, within normal limits for gestational age. heart rate: 155 beats per minute. Maternal cervical canal: 5.4 cm long; normal length is 2.5 cm or more. biometrics: Biparietal diameter: 34 weeks 4 days Head circumference: 34 weeks 3 days Abdominal circumference: 36 weeks 3 days Femur length: 35 weeks 1 day Estimated gestational age from initial scan: 36 weeks 3 days Composite gestational age from present scan: 35 weeks 1 day Estimated weight and percentile: 27 47 g, 33rd percentile Measurement variability in biometric dating: +/- 10 days from 12-20 weeks gestation, +/- 2 weeks from 20-30 weeks gestation, +/- 3 weeks at 30 weeks gestation or more. Biophysical profile score of 8 out of [address] ratio is within the umbilical cord . Other: Not applicable. IMPRESSION: 1. Single living IUP redemonstrated and interval growth is normal. 2. Normal biophysical profile and cord Doppler. Reviewed by: DARIO London on 06/25/2023 8:29 AM PDT Approved by: Allie Isabel MD on 06/25/2023 8:29 AM PDT Station ID: [id number]
== END 2023-06-24 16:31 | disposition home or self-care (01) ==
LOC: DI 16:30
PROVIDERS: ATTEND Obstetrics & Gynecology
DX: O24.419 Gestational diabetes mellitus in pregnancy, unspecified control (principal); Z3A.34 34 weeks gestation of pregnancy

== ENCOUNTER 2023-06-24 17:22 | Outpatient (CLI) | payer OTHER ==
[2023-06-24 17:50] VITALS: BP 109/56
--- NOTE | 2023-06-24 19:05 | PROCEDURE REPORT ---
- HPI Diagnosis/Indication for NST: Gestational Diabetes Current EDU 07/19/23 Gestation 36 Weeks and 3 Days 4 Para 3 Vital Signs Temperature 98.2 F 06/24/23 17:35 Heart Rate 72 06/24/23 17:35 Respiratory Rate 16 06/24/23 17:35 Blood Pressure 109/56 L 06/24/23 17:35 Temperature 98.2 F 06/24/23 17:35 Heart Rate 72 06/24/23 17:35 Respiratory Rate 16 06/24/23 17:35 Blood Pressure 109/56 L 06/24/23 17:35 O2 Saturation If not protocol: Oxygen Flow, liters/minute - NST Procedure NST Procedure Start Date 06/24/23 Start Time 17:35 Stop Time 18:00 Vibroacoustic Stimulation Used No Patient States Movement Yes EFM: 140, moderate variability, positive 15x15 accelerations, no decelerations [place]: no contractions NST reactive/Cat 1 Performed and read 06/24/23 - Results and Plan Plan: 28yo at 36.3w presenting for scheduled NST for GDMA2 - NST reactive - Follow up as scheduled
== END 2023-06-24 18:10 | disposition home or self-care (01) ==
LOC: WFO 17:22 → FBP 17:24 → WFO 18:10
PROVIDERS: ATTEND Obstetrics & Gynecology
DX: O24.419 Gestational diabetes mellitus in pregnancy, unspecified control (principal); Z3A.36 36 weeks gestation of pregnancy
CPT/HCPCS: 59025

== ENCOUNTER 2023-06-27 17:57 | Outpatient (CLI) | payer OTHER ==
[2023-06-27 18:22] VITALS: BP 108/50
--- NOTE | 2023-06-28 10:29 | PROCEDURE REPORT ---
- HPI Diagnosis/Indication for NST: Gestational Diabetes Current EDU 07/19/23 Gestation 36 Weeks and 6 Days 4 Para 3 Vital Signs Temperature 98.1 F 06/27/23 18:18 Heart Rate 87 06/27/23 18:18 Respiratory Rate 18 06/27/23 18:18 Blood Pressure 108/50 L 06/27/23 18:18 Temperature 98.1 F 06/27/23 18:21 Heart Rate 82 06/27/23 18:21 Respiratory Rate 18 06/27/23 18:21 Blood Pressure 108/50 L 06/27/23 18:21 O2 Saturation If not protocol: Oxygen Flow, liters/minute - NST Procedure NST Procedure Start Date 06/27/23 Start Time 18:15 Stop Time 18:39 Vibroacoustic Stimulation Used No Patient States Movement Yes 130 mod susy + A cells no D cells reactive - Results and Plan Findings/Impression: reassuring reactive and doing well. Plan: OK to D/C home precautions reviewed no concerns and has good follow up / compliance.
== END 2023-06-27 18:40 | disposition home or self-care (01) ==
LOC: WFO 17:57 → FBP 18:11 → WFO 18:40
PROVIDERS: ATTEND Obstetrics & Gynecology
DX: O24.419 Gestational diabetes mellitus in pregnancy, unspecified control (principal); Z3A.36 36 weeks gestation of pregnancy
CPT/HCPCS: 59025

== ENCOUNTER 2023-07-01 09:03 | Outpatient (CLI) | payer OTHER ==
[2023-07-01 09:37] VITALS: BP 111/60
--- NOTE | 2023-07-01 11:27 | PROCEDURE REPORT ---
- HPI Diagnosis/Indication for NST: Gestational Diabetes Current EDU 07/19/23 Gestation 37 Weeks and 3 Days 4 Para 3 Vital Signs Temperature 98.2 F 07/01/23 09:30 Heart Rate 77 07/01/23 09:30 Respiratory Rate 18 07/01/23 09:30 Blood Pressure 111/60 07/01/23 09:30 Temperature 98.2 F 07/01/23 09:30 Heart Rate 77 07/01/23 09:30 Respiratory Rate 18 07/01/23 09:30 Blood Pressure 111/60 07/01/23 09:30 O2 Saturation If not protocol: Oxygen Flow, liters/minute - NST Procedure NST Procedure: baseline 150 mod susy + A cells no D cells reactive one "carrot" though coming off of an A cell and pt in route to BPP. BPP results 07/01. Start Date 07/01/23 Start Time 09:21 Stop Time 09:41 Vibroacoustic Stimulation Used No Patient States Movement Yes - Results and Plan Findings/Impression: reactive NST Plan: D/C home with precautions.
== END 2023-07-01 10:00 | disposition home or self-care (01) ==
LOC: WFO 09:03 → FBP 09:05 → WFO 10:00
PROVIDERS: ATTEND Obstetrics & Gynecology
DX: O24.419 Gestational diabetes mellitus in pregnancy, unspecified control (principal); Z3A.37 37 weeks gestation of pregnancy
CPT/HCPCS: 59025

== ENCOUNTER 2023-07-03 16:32 | Outpatient (CLI) | payer OTHER ==
[2023-07-03 16:49] VITALS: BP 107/66
--- NOTE | 2023-07-03 19:37 | PROCEDURE REPORT ---
- HPI Diagnosis/Indication for NST: Gestational Diabetes Current EDU 07/19/23 Gestation 37 Weeks and 5 Days 4 Para 3 Vital Signs Temperature 98.2 F 07/03/23 16:45 Heart Rate 86 07/03/23 16:45 Respiratory Rate 18 07/03/23 16:45 Blood Pressure 107/66 07/03/23 16:45 Temperature 98.2 F 07/03/23 17:18 Heart Rate 95 07/03/23 17:18 Respiratory Rate 18 07/03/23 17:18 Blood Pressure 107/66 07/03/23 17:18 O2 Saturation If not protocol: Oxygen Flow, liters/minute - NST Procedure NST Procedure Start Date 07/03/23 Start Time 16:43 Stop Time 17:08 Vibroacoustic Stimulation Used No Patient States Movement Yes 145 mod susy + A cells no D cells reactive - Results and Plan Findings/Impression: reactive NST Plan: OK to D/C home and continue scheduled ANC
== END 2023-07-03 17:10 | disposition home or self-care (01) ==
LOC: WFO 16:32 → FBP 16:33 → WFO 17:10
PROVIDERS: ATTEND Obstetrics & Gynecology
DX: O24.419 Gestational diabetes mellitus in pregnancy, unspecified control (principal); Z3A.37 37 weeks gestation of pregnancy
CPT/HCPCS: 59025

== ENCOUNTER 2023-07-07 16:01 | Outpatient (CLI) | payer OTHER ==
--- NOTE | 2023-07-09 09:15 | Ultrasound Report ---
PROCEDURE: OB Biophysical Profile INDICATIONS: GESTATIONAL DIABETES OUTSIDE/PRIOR DATING DATA: Last menstrual period (LMP): 10/12/2022. LMP-based estimated date of delivery (SHELBY): 07/19/2023. The below data below was generated using the clinical SHELBY of 07/19/2023 TECHNIQUE: Real-time scanning was performed of the fetus, with image documentation. Biophysical pro file was also obtained. Spectral and Doppler evaluation of the umbilical artery was performed. Endovaginal scanning: Not performed COMPARISON: None. FINDINGS: General: A single living intrauterine gestation is present. Presentation: Vertex Placenta: Placental position is anterior, without previa. Amniotic fluid index: 16.4 cm, within normal limits for gestational age. heart rate: 138 beats per minute. Maternal cervical canal: 6 cm long; normal length is 2.5 cm or more. Biophysical profile: Tone: 2 points. Movement: 2 points. Respiration: 2 points. Largest pocket of fluid: 2 points. Umbilical artery Doppler: Normal umbilical artery waveform. IMPRESSION: Single living intrauterine at 30 weeks 2 days, SHELBY of 07/19/2023. BPP 8 of 8. Normal umbilical artery waveform. Reviewed by: Dwight Cassidy on 07/09/2023 9:13 AM PDT Approved by: Dwight Cassidy on 07/09/2023 9:13 AM PDT Station ID: [id number]
== END 2023-07-07 16:02 | disposition home or self-care (01) ==
LOC: DI 16:01
PROVIDERS: ATTEND Obstetrics & Gynecology
DX: O24.419 Gestational diabetes mellitus in pregnancy, unspecified control (principal); Z3A.30 30 weeks gestation of pregnancy

== ENCOUNTER 2023-07-07 16:48 | Outpatient (CLI) | payer OTHER ==
[2023-07-07 17:26] VITALS: BP 99/50
--- NOTE | 2023-07-08 10:57 | PROCEDURE REPORT ---
- HPI Diagnosis/Indication for NST: Gestational Diabetes Current EDU 07/19/23 Gestation 38 Weeks and 2 Days 4 Para 3 Vital Signs Temperature 98.1 F 07/07/23 17:17 Heart Rate 63 07/07/23 17:17 Respiratory Rate 18 07/07/23 17:17 Blood Pressure 99/50 L 07/07/23 17:17 Temperature 98.1 F 07/07/23 17:17 Heart Rate 63 07/07/23 17:17 Respiratory Rate 18 07/07/23 17:17 Blood Pressure 99/50 L 07/07/23 17:17 O2 Saturation If not protocol: Oxygen Flow, liters/minute - NST Procedure NST Procedure Start Date 07/07/23 Start Time 17:00 Stop Time 17:40 Vibroacoustic Stimulation Used No Patient States Movement Yes 38+2 weeks, gestational diabetes 135, moderate variability, +accels, no decels Reactive NST - Results and Plan Plan: patient has follow up with primary OB provider
== END 2023-07-07 17:50 | disposition home or self-care (01) ==
LOC: WFO 16:48 → FBP 16:50 → WFO 17:50
PROVIDERS: ATTEND Obstetrics & Gynecology Obstetrics
DX: O24.419 Gestational diabetes mellitus in pregnancy, unspecified control (principal); Z3A.38 38 weeks gestation of pregnancy
CPT/HCPCS: 59025

== ENCOUNTER 2023-07-10 14:43 | Outpatient (CLI) | payer OTHER ==
[2023-07-10 15:22] VITALS: O2SAT 99
[2023-07-10 16:10] VITALS: BP 115/72
--- NOTE | 2023-07-11 08:38 | PROCEDURE REPORT ---
- HPI Diagnosis/Indication for NST: Gestational Diabetes Current EDU 07/19/23 Gestation 38 Weeks and 5 Days 4 Para 3 Vital Signs Temperature 97.7 F 07/10/23 15:20 Heart Rate 79 07/10/23 15:20 Respiratory Rate 07/10/23 15:20 Blood Pressure 92/44 L 07/10/23 15:20 O2 Saturation 99 07/10/23 15:20 Temperature 97.7 F 07/10/23 15:21 Heart Rate 79 07/10/23 15:20 Respiratory Rate 07/10/23 15:20 Blood Pressure 115/72 07/10/23 15:35 O2 Saturation 99 07/10/23 15:20 If not protocol: Oxygen Flow, liters/minute - NST Procedure NST Procedure Start Date 07/10/23 Start Time 15:15 Stop Time 15:36 Vibroacoustic Stimulation Used No Patient States Movement Yes 38+4 reactive NST
== END 2023-07-10 15:35 | disposition home or self-care (01) ==
LOC: WFO 14:43 → FBP 14:44 → WFO 15:35
PROVIDERS: ATTEND Obstetrics & Gynecology Obstetrics
DX: O24.419 Gestational diabetes mellitus in pregnancy, unspecified control (principal); Z3A.38 38 weeks gestation of pregnancy
CPT/HCPCS: 59025

== ENCOUNTER 2023-07-14 08:06 | Inpatient (IN) | payer OTHER ==
[2023-07-14] MEDS ORDERED: OXYTOCIN/SODIUM CHLORIDE 500 ML IV PRN (08:55)
[2023-07-14] MEDS ORDERED: miSOPROStoL 200 MCG TABLET PR PRN (08:55)
[2023-07-14] MEDS ORDERED: METHYLERGONOVINE 0.2 MG/ML VIAL IM PRN (08:55)
[2023-07-14] MEDS ORDERED: SODIUM CHLORIDE FLUSH 0.9% 10 ML SYRINGE IVP PRN (08:55)
[2023-07-14] MEDS ORDERED: LACTATED RINGERS 1,000 ML IV PRN (08:55)
[2023-07-14] MEDS ORDERED: CARBOPROST TROMETHAMINE 250 MCG/ML AMP IM PRN (08:55)
[2023-07-14] MEDS ORDERED: miSOPROStoL 200 MCG TABLET BC PRN (08:55)
[2023-07-14] MEDS ORDERED: OXYTOCIN 10 UNIT/ML VIAL IM PRN (08:55)
[2023-07-14] MEDS ORDERED: fentaNYL 100 MCG/2 ML VIAL IVP PRN (08:55)
[2023-07-14] MEDS ORDERED: lidocaine 1% 20 ML MDV ID PRN (08:55)
[2023-07-14] MEDS ORDERED: TRANEXAMIC ACID IN NACL 1,000 MG/100 ML BAG IV PRN (08:55)
[2023-07-14] MEDS ORDERED: OXYTOCIN/SODIUM CHLORIDE 500 ML IV SCH (09:00)
[2023-07-14] MEDS ORDERED: LACTATED RINGERS 1,000 ML IV SCH (09:00)
[2023-07-14] MEDS ORDERED: SODIUM CHLORIDE FLUSH 0.9% 10 ML SYRINGE IVP SCH (09:00)
[2023-07-14] MEDS ORDERED: miSOPROStoL 100 MCG TABLET BC SCH (09:00)
[2023-07-14 10:10] LABS: BASOPHILS # (AUTO) 0.1 10^3/uL (0.0-0.1); BASOPHILS % (AUTO) 0.7 %; EOSINOPHILS # (AUTO) 0.2 10^3/uL (0.0-0.7); EOSINOPHILS % (AUTO) 2.1 %; HCT - HEMATOCRIT 36.5 % (37.0-47.0); HGB - HEMOGLOBIN 11.4 g/dL (12.0-16.0); LYMPHOCYTES # (AUTO) 2.2 10^3/uL (1.5-3.5); LYMPHOCYTES % (AUTO) 20.4 %; MEAN CORPUSCULAR HGB CONC 31.2 g/dL (32.0-36.0); MEAN CORPUSCULAR VOLUME 73.7 fL (81.0-99.0); MEAN PLATELET VOLUME 11.6 fL (7.9-10.8); MONOCYTES # (AUTO) 0.9 10^3/uL (0.0-1.0); MONOCYTES % (AUTO) 8.3 %; NEUTROPHILS # (AUTO) 7.3 10^3/uL (1.5-6.6); NEUTROPHILS % (AUTO) 68.2 %; PLT - PLATELET COUNT 233 10^3/uL (130-450); RED BLOOD COUNT 4.95 10^6/uL (4.20-5.40); RED CELL DISTRIBUTION WIDTH 16.7 % (12.0-15.0); WHITE BLOOD COUNT 10.7 x10^3/uL (4.8-10.8)
[2023-07-14 10:22] LABS: ALBUMIN 3.3 g/dL (3.2-5.5); BILIRUBIN,TOTAL 0.4 mg/dL (0.2-1.0); CREATININE 0.5 mg/dL (0.6-1.3); POTASSIUM 3.7 mmol/L (3.5-4.5); TOTAL PROTEIN 6.5 g/dL (6.4-8.9)
[2023-07-14] MEDS: metFORMIN 500 MG TABLET PO SCH ×2 (11:28→21:55)
--- NOTE | 2023-07-14 11:33 | HISTORY & PHYSICAL EXAMINATION ---
Admit History - Visit Reason Visit Reason: Other (IOL for GDMA2) - : 4 Parity: 3 Care: positive: [facility] Risk/History: positive: Gestational diabetes Complications This : positive: Gestational diabetes Smoking Status: Never smoker - Mother's Labs Mother's Blood Type: positive: A Mother's RH: positive: Positive GBS: positive: Group B Step Negative Rubella Status: positive: Non-immune - HPI Current EDU 07/19/23 Gestation 39 Weeks and 2 Days 4 Vital Signs Temperature 97.9 F 07/14/23 08:55 Heart Rate 84 07/14/23 08:55 Respiratory Rate 16 07/14/23 08:55 Blood Pressure 97/54 L 07/14/23 08:55 Temperature 97.9 F 07/14/23 08:55 Heart Rate 84 07/14/23 08:55 Respiratory Rate 16 07/14/23 08:55 Blood Pressure 97/54 L 07/14/23 08:55 O2 Saturation If not protocol: Oxygen Flow, liters/minute - NST Procedure NST Procedure Start Time 15:15 Stop Time 15:36 - Results and Plan Plan: Direct admission for IOL Meds/Allgy - Home Medications Home Medications: Ambulatory Orders Medication Instructions Recorded Confirmed No Known Home Medications 09/26/22 09/26/22 - Allergies Allergies/Adverse Reactions: Allergies Allergy/AdvReac Type Severity Reaction Status Date / Time No Known Drug Allergies Allergy Verified 09/26/22 20:15 Review of Systems - All Other Systems All Other Systems: reports: Reviewed and negative Physical - Abdominal Exam Vital Signs: Temp Pulse Resp BP Pulse Ox O2 Flow Rate 97.9 F 84 16 97/54 L 07/14/23 08:55 07/14/23 08:55 07/14/23 08:55 07/14/23 08:55 Contraction Frequency (min/apart): None Uterine Resting Tone: positive: Soft - Monitoring Heart Rate Baseline: 130 Strip Review: positive: Category I - Presentation Presentation: positive: Vertex (EFW 3000g, placenta anterior) - Vaginal Exam Dilation (in cm): 1 Effacement (%): 50 Station: positive: -3 Cervical Position: positive: Midposition Plan for Labor - Plan For Labor I expect patient to be DC'd or transferred within 96 hours.: Yes Plan for Labor: 28yo at 39.2w by LMP consistent with 11w US admitted for scheduled IOL for GDMA2 - Admit - CBC, TS, CMP - NPH 30 at night, recently started on 2u before lunch and 4u before dinner. DM diagnosed this . Did have GDM most recent two pregnancies, denies DM wh en not . Will start metformin daily now and likely continue , will assess if she needs insulin . CMP now, follow up BG. Check BG q2 in active labor. Paln to deliver before night time dose of insulin. otherwise complicated by BMI 42, rubella NON immune.
--- NOTE | 2023-07-14 17:42 | PROVIDER PROGRESS NOTE ---
Labor Progress Note - Uterine Monitoring Uterine Monitoring Mode: positive: External toco Contraction Frequency (min/apart): 4 Contraction Intensity: positive: Mild to moderate Uterine Resting Tone: positive: Soft - Monitoring Monitor Mode: positive: External ultrasound Heart Rate Baseline: 130 Heart Rate Variability: positive: Moderate (6-25 bmp) Accelerations: positive: Present, 15x15 Decelerations: positive: None Strip Review: positive: Category I - Vaginal Exam Dilation (in cm): 5 Effacement (%): 100 Station: -2 Cervical Position: Midposition - Labor Progress Note Labor Progress Note/Additional Text: 28yo at 39.2w by LMP consistent with 11w US admitted for scheduled IOL for GDMA2 - BG has been controlled ~120 - AROM 1730 - Anticipate otherwise complicated by BMI 42, rubella NON immune.
[2023-07-14] MEDS ORDERED: ROPIVACAINE 0.2% 200 MG/100 ML BAG EP ONE (20:08)
[2023-07-14] MEDS ORDERED: ROPIVACAINE 0.2% PF 10 ML VIAL ONE (20:16)
[2023-07-14] MEDS ORDERED: LIDOCAINE 2%-EPI 1:100000 20 ML MDV ONE (20:16)
[2023-07-14] MEDS ORDERED: ONDANSETRON 4 MG/2 ML VIAL IVP PRN (20:45)
[2023-07-14] MEDS ORDERED: ePHEDrine 50 MG/ML VIAL IVP PRN (20:45)
[2023-07-14] MEDS ORDERED: METOCLOPRAMIDE 10 MG/2 ML VIAL IVP PRN (20:45)
[2023-07-14] MEDS ORDERED: NALBUPHINE 10 MG/ML AMP IVP PRN (20:45)
[2023-07-14] MEDS ORDERED: ROPIVACAINE 0.2% 200 MG/100 ML BAG EP PRN (20:45)
[2023-07-14] MEDS ORDERED: NALOXONE 0.4 MG/ML VIAL IVP PRN (20:45)
[2023-07-14] MEDS ORDERED: diphenhydrAMINE INJ 50 MG/ML VIAL IVP PRN (20:45)
--- NOTE | 2023-07-14 20:45 | ANESTHESIA ---
Pre-Anesthesia VS, & Labs - Diagnosis active labor - Procedure labor epidural Vital Signs: Temp Pulse Resp BP Pulse Ox O2 Flow Rate 36.6 C 84 16 97/54 L 07/14/23 08:55 07/14/23 08:55 07/14/23 08:55 07/14/23 08:55 Height: 5 ft - NPO Other - Is Patient ?: Yes - Lab Results Current Lab Results: Laboratory Tests 07/14/23 09:05: Sodium 135, Potassium 3.7, Chloride 104, Carbon Dioxide 23, Anion Gap 8.0, BUN 10, Creatinine 0.5 L, Estimated GFR (MDRD) 147, Glucose 119 H , Calcium 9.0, Total Bilirubin 0.4, AST 11, ALT 8 L, Alkaline Phosphatase 127 H, Total Protein 6.5, Albumin 3.3, Globulin 3.2, Albumin/Globulin Ratio 1.0 07/14/23 09:05: WBC 10.7, RBC 4.95, Hgb 11.4 L, Hct 36.5 L, MCV 73.7 L, MCH 23.0 L, MCHC 31.2 L, RDW 16.7 H, Plt Count 233, MPV 11.6 H, Neut # (Auto) 7.3 H, Lymph # (Auto) 2.2, Mccone # (Auto) 0.9, Eos # (Auto) 0.2, Baso # (Auto) 0.1, Absolute Nucleated RBC 0.00, Nucleated RBC % 0.0 07/14/23 09:05: Blood Type A POSITIVE, Antibody Screen NEGATIVE Fish Bones: 07/14/23 09:05 07/14/23 09:05 Home Medications and Allergies Active Medications Carboprost Tromethamine (Carboprost Tromethamine 250 Mcg/Ml Amp) 250 mcg IM .ONCE PRN PRN Reason: Hemorrhage Fentanyl (Fentanyl 100 Mcg/2 Ml Vial) 50 mcg IVP Q1H PRN PRN Reason: Severe Pain (score 7-10) Lactated Ringer's (Lr) 500 mls @ 999 mls/hr IV PRN PRN PRN Reason: PER PHYSICIAN ORDER Oxytocin/Sodium Chloride (Pitocin/Sodium Chloride) 500 mls @ 999 mls/hr IV PRN PRN; Protocol PRN Reason: POST- HEMORR PREVENTION Tranexamic Acid (Tranexamic 1,000 Mg/100ml-Nacl) 1,000 mg in 100 mls @ 600 mls/hr IV Q30M PRN PRN Reason: EBL >1200mL and within 3hr Lactated Ringer's (Lr) 1,000 mls @ 125 mls/hr IV .Q8H [facility] Last Admin: 07/14/23 20:08 Dose: 125 mls/hr Oxytocin/Sodium Chloride (Pitocin/Sodium Chloride) 500 mls @ 2 mls/hr IV TITR FAHEEM; Protocol Last Admin: 07/14/23 13:37 Dose: 2 milliunit/min, 2 mls/hr Lidocaine HCl (Lidocaine 1% 20 Ml Mdv) 20 ml ID .ONCE PRN PRN Reason: PERINEAL REPAIR Stop: 07/17/23 08:55 Metformin HCl (Metformin 500 Mg Tablet) 1,000 mg PO BIDWM [facility] Last Admin: 07/14/23 11:28 Dose: 1,000 mg Methylergonovine Maleate (Methylergonovine 0.2 Mg/Ml Vial) 0.2 mg IM .ONCE PRN PRN Reason: Hemorrhage Misoprostol (Misoprostol 200 Mcg Tablet) 600 mcg BC .ONCE PRN PRN Reason: Hemorrhage Misoprostol (Misoprostol 200 Mcg Tablet) 800 mcg RI .ONCE PRN PRN Reason: Hemorrhage Oxytocin (Oxytocin 10 Unit/Ml Vial) 10 unit IM .ONCE PRN PRN Reason: Step One if no IV access. Sodium Chloride (Sodium Chloride Flush 0.9% 10 Ml Syringe) 10 ml IVP PRN PRN PRN Reason: NEEDED PER PROVIDER ORDERS Sodium Chloride (Sodium Chloride Flush 0.9% 10 Ml Syringe) 10 ml IVP Q8H [facility] No Known Home Medications 09/26/22 Allergies/Adverse Reactions: Allergies Allergy/AdvReac Type Severity Reaction Status Date / Time No Known Drug Allergies Allergy Verified 09/26/22 20:15 Anes History & Medical History - Anesthetic History Anesthesia Complications: reports: No previous complications Family history of Anesthesia Complications: Denies Family history of Malignant Hyperthermia: Denies - Medical History Cardiovascular: reports: None Pulmonary: reports: None Gastrointestinal: reports: None Urinary: reports: None Neuro: reports: None Musculoskeletal: reports: None Endocrine/Autoimmune: reports: Other (GDM) Blood Disorders: reports: None Skin: reports: None Smoking Status: Never smoker Psychosocial: reports: No issues indicated - Obstetrical History : 4 Parity: 3 Events: reports: Gestational diabetes Complications: reports: Gestational diabetes Exam General: Alert, Oriented x3, Cooperative Dental: WNL Mouth Openin Fingerbreadth Neck Mobility: Normal Mallampati classification: III Thyromental Distance: 4-6 cm Respiratory: Lungs clear Cardiovascular: Regular rate Plan Anesthesia Type: Epidural Consent for Procedure(s) Verified and Reviewed: Yes Code Status: Attempt Resuscitation ASA classification: 2-Mild systemic disease Is this case an emergency?: No
[2023-07-14] MEDS ORDERED: HYDROCORTISONE 1% CREAM 28 GM TUBE PR PRN (21:17)
[2023-07-14] MEDS ORDERED: MEASLES,MUMPS & RUBELLA VACC 0.5 ML VIAL SUBQ ONE (21:17)
[2023-07-14] MEDS ORDERED: WITCH HAZEL/GLYCERIN 1 PAD TOP PRN (21:17)
--- NOTE | 2023-07-14 21:25 | DELIVERY NOTE ---
Delivery Note - Labor Labor: positive: Augmented by ARM, Augmented by oxytocin - Delivery Method Delivery Method: positive: Spontaneous vaginal delivery - Cervical Ripening Method Cervical Ripening Method: positive: Misoprostil (50mcg BC x1) - Presentation Presentation: positive: Vertex, RUDDY - left occiput anterior - Nuchal Cord Nuchal Cord: positive: Present (x1, reduced after delivery) - Anesthetic Anesthetic Type: - Amniotic Fluid Description Amniotic Fluid Description: positive: Clear - Episiotomy Type Episiotomy Type: positive: None - Laceration Laceration: positive: None - Delivery Outcome Delivery Outcome: positive: Livebirth - [place] : positive: Placed in direct skin contact with mother, Bulb syringe, Stimulated, Warmed, [place] used sex: positive: Female (Smita) - Cord Cord: positive: 3 vessels - Placenta Placenta: positive: Intact, Spontaneous - Estimated Blood Loss Estimated Blood Loss (in cc): 100 - Post Delivery Events Post Delivery Events: positive: No post delivery events - Delivery Comments (Free Text/Narrative) Delivery Comments (Free Text/Narrative): /+2 with good maternal pushing. Head delivered RUDDY. Nuchal cord noted. Shoulders and body delivered with ease. Nuchal cord reduced. Baby placed on mother's abdomen. Delayed cord clamping. Fundus firm. Vagina and perineum inspected- no lacerations. Family doing well bonding at bedside, . QBL 100cc.
[2023-07-14] MEDS ORDERED: SIMETHICONE CHEW 80 MG TABLET PO SCH (22:00)
[2023-07-15] MEDS: ACETAMINOPHEN 500 MG TABLET PO SCH ×3 (00:51→17:06)
[2023-07-15] MEDS: IBUPROFEN 800 MG TABLET PO SCH ×4 (00:52→19:52)
[2023-07-15] MEDS ORDERED: IRON DEXTRAN 1,000 MG in SODIUM CHLORIDE 0.9% 250 ML IV ONE (08:00)
[2023-07-15] MEDS: metFORMIN 500 MG TABLET PO SCH ×2 (08:02→17:06)
--- NOTE | 2023-07-15 08:41 | PROVIDER PROGRESS NOTE ---
Subjective - Prog Note Date Prog Note Date: 07/15/23 Prog Note Time: 08:00 - Subjective Pt reports feeling: Improved Subjective: Comfortable, some uterine cramping. Appropriate lochia. Ambulating. Voiding. Tolerating regular diet. well. Mood is good. We discussed her low ferritin and plan for IV iron x1 prior to discharge, she accepts. Objective - Vital Signs/Intake & Output Reviewed Vital Signs: Yes Vital Signs: Vital Signs x48h Temp Pulse Resp BP BP Pulse Ox 07/15/23 08:07 97.9 F 57 L 15 96/50 L 98 07/15/23 04:20 98.4 F 56 L 14 104/51 L 97 07/15/23 01:12 56 L 14 100/50 L 100 Intake & Output: Intake & Output 07/12/23 07/13/23 07/14/23 07/15/23 23:59 23:59 23:59 23:59 Intake Total 1252.000 750 Output Total 552 720 Balance 700.000 30 - Objective General Appearance: positive: No acute distress Eyes Bilateral: positive: EOMI Respiratory: positive: No respiratory distress Abdomen: positive: Non-tender (FF) Skin: positive: Pallor Extremities: positive: Non-tender Neurologic/Psychiatric: positive: Oriented x3 - Lab Results Fish Bones: 07/14/23 09:05 07/14/23 09:05 Other Labs: Lab Results x24hrs 07/15/23 07/15/23 07/14/23 Range/Units 06:07 04:17 09:05 WBC (4.8-10.8) x10^3/uL RBC (4.20-5.40) 10^6/uL Hgb (12.0-16.0) g/dL Hct (37.0-47.0) % MCV (81.0-99.0) fL MCH (27.0-31.0) pg MCHC (32.0-36.0) g/dL RDW (12.0-15.0) % Plt Count (130-450) 10^3/uL MPV (7.9-10.8) fL Neut # (Auto) (1.5-6.6) 10^3/uL Lymph # (Auto) (1.5-3.5) 10^3/uL Cotton # (Auto) (0.0-1.0) 10^3/uL Eos # (Auto) (0.0-0.7) 10^3/uL Baso # (Auto) (0.0-0.1) 10^3/uL Absolute Nucleated RBC x10^3/uL Nucleated RBC % /100WBC Sodium 135 (135-145) mmol/L Potassium 3.7 (3.5-4.5) mmol/L Chloride 104 (101-111) mmol/L Carbon Dioxide 23 (21-32) mmol/L Anion Gap 8.0 (6-13) BUN 10 (6-20) mg/dL Creatinine 0.5 L (0.6-1.3) mg/dL Estimated GFR (MDRD) 147 (>89) Glucose 119 H (74-104) mg/dL POC Whole Bld Glucose 78 (70 - 100) mg/dL Calcium 9.0 (8.5-10.3) mg/dL Ferritin 5.5 L (11.0-306.8) ng/mL Total Bilirubin 0.4 (0.2-1.0) mg/dL AST 11 (10-42) IU/L ALT 8 L (10-60) IU/L Alkaline Phosphatase 127 H (42-121) IU/L Total Protein 6.5 (6.4-8.9) g/dL Albumin 3.3 (3.2-5.5) g/dL Globulin 3.2 (2.1-4.2) g/dL Albumin/Globulin Ratio 1.0 (1.0-2.2) Blood Type Antibody Screen 07/14/23 07/14/23 Range/Units 09:05 09:05 WBC 10.7 (4.8-10.8) x10^3/uL RBC 4.95 (4.20-5.40) 10^6/uL Hgb 11.4 L (12.0-16.0) g/dL Hct 36.5 L (37.0-47.0) % MCV 73.7 L (81.0-99.0) fL MCH 23.0 L (27.0-31.0) pg MCHC 31.2 L (32.0-36.0) g/dL RDW 16.7 H (12.0-15.0) % Plt Count 233 (130-450) 10^3/uL MPV 11.6 H (7.9-10.8) fL Neut # (Auto) 7.3 H (1.5-6.6) 10^3/uL Lymph # (Auto) 2.2 (1.5-3.5) 10^3/uL Cotton # (Auto) 0.9 (0.0-1.0) 10^3/uL Eos # (Auto) 0.2 (0.0-0.7) 10^3/uL Baso # (Auto) 0.1 (0.0-0.1) 10^3/uL Absolute Nucleated RBC 0.00 x10^3/uL Nucleated RBC % 0.0 /100WBC Sodium (135-145) mmol/L Potassium (3.5-4.5) mmol/L Chloride (101-111) mmol/L Carbon Dioxide (21-32) mmol/L Anion Gap (6-13) BUN (6-20) mg/dL Creatinine (0.6-1.3) mg/dL Estimated GFR (MDRD) (>89) Glucose (74-104) mg/dL POC Whole Bld Glucose (70 - 100) mg/dL Calcium (8.5-10.3) mg/dL Ferritin (11.0-306.8) ng/mL Total Bilirubin (0.2-1.0) mg/dL AST (10-42) IU/L ALT (10-60) IU/L Alkaline Phosphatase (42-121) IU/L Total Protein (6.4-8.9) g/dL Albumin (3.2-5.5) g/dL Globulin (2.1-4.2) g/dL Albumin/Globulin Ratio (1.0-2.2) Blood Type A POSITIVE Antibody Screen NEGATIVE Assessment/Plan - Problem List (1) care following vaginal delivery Impression: 28yo s/p at 39.2w following IOL for GDMA2, PPD#1 - Routine care - Recovering well (2) Anemia, iron deficiency Impression: Ferritin low, will replace with one time iron infusion now. Infed ordered. (3) Gestational diabetes Impression: Insulin discontinued. Continue metformin 1000mg BID. Follow up HgbA1c. Evaluate for pre-existing DM. Likely pre-existing as early 1h GTT 255. Plan for 2h GTT as needed. Qualifiers: Gestational diabetes mellitus control: insulin-controlled Trimester: third trimester Qualified Code(s): O24.414 - Gestational diabetes mellitus in , insulin controlled (4) Single live Impression: Baby girl Smita doing well, rooming with mother. (5) 39 weeks gestation of Impression: [id number] Anticipate discharge of couplet tomorrow (6) Rubella non-immune status, delivered, current hospitalization Impression: Offer MMR prior to discharge
[2023-07-15] MEDS ORDERED: DOCUSATE SODIUM 100 MG CAPSULE PO SCH (09:00)
[2023-07-15 09:02] LABS: ESTIMATED AVERAGE GLUCOSE 128 mg/dL (70-100); HEMOGLOBIN A1c% 6.1 % (4.27-6.07)
--- NOTE | 2023-07-15 15:57 | DISCHARGE SUMMARY ---
"Discharge Summary Admit Date: 07/14/23 Discharge Date: 07/15/23 Discharging Provider: [email or web address] Code Status: Attempt Resuscitation Condition at Discharge: Good Discharge Disposition: 01 Home, Self Care - DIAGNOSES Admission Diagnoses: induction of labor - GDM, D/C home on metformin Discharge Diagnoses with Status of Each Condition: post day 1, uneventful IOL got IV iron day 1. HgB post was 11.4 - IV iron was given for low ferritin x1. no plans to continue. doing well, OK to D/C home. , experienced. baby is well. discharge instructions and precautions reviewed today. - HPI History of Present Illness: 28yo at 39.2w by LMP consistent with 11w US admitted for scheduled IOL for GDMA2 - Admit - CBC, TS, CMP - NPH 30 at night, recently started on 2u before lunch and 4u before dinner. DM diagnosed this . Did have GDM most recent two pregnancies, denies DM when not . Will start metformin daily now and likely continue , will assess if she needs insulin . CMP now, follow up BG. Check BG q2 in active labor. Paln to deliver before night time dose of insulin. otherwise complicated by BMI 42, rubella NON immune. - CONSULTS | PROCEDURES Procedures: IOL IV iron x1 post care - HOSPITAL COURSE Hospital Course: IOL IV iron 2'2 low ferritin on admission routine PP care - ALLERGIES Allergies/Adverse Reactions: Allergies Allergy/AdvReac Type Severity Reaction Status Date / Time No Known Drug Allergies Allergy Verified 09/26/22 20:15 - MEDICATIONS Home Medications: Ambulatory Orders Medication Instructions Recorded Confirmed No Known Home Medications 09/26/22 09/26/22 - PHYSICAL EXAM AT DISCHARGE General Appearance: positive: No acute distress Eyes Bilateral: positive: Normal inspection Neck: positive: Nml inspection Respiratory: positive: Chest non-tender, No respiratory distress Cardiovascular: positive: Regular rate & rhythm, No murmur Abdomen: positive: Non-tender Skin: positive: Color nml Extremities: positive: Non-tender, Nml appearance, Pedal edema (+1) Neurologic/Psychiatric: positive: Oriented x3 - LABS Result Diagrams: 07/14/23 09:05 07/14/23 09:05 - QUALITY (Female Hip Fx Only) Was patient sent home on osteoporosis medication?: No - FOLLOW UP Follow Up: 1 week at clinic - TIME SPENT Time Spent in Discharge (Minutes): 30"
[2023-07-15 18:43] VITALS: BP 99/56; O2SAT 100
[2023-07-15] MEDS ORDERED: MEASLES,MUMPS & RUBELLA VACC 0.5 ML VIAL SUBQ ONE (21:56)
--- NOTE | 2023-07-15 23:34 | Labor Flowsheet ---
Labor Flowsheet Datetime Report Generated by CPN: 07/15/2023 23:33 Datetime: 07/15/2023 18:40 VITAL SIGNS NBP Sys/Mckenna/Mean (mmHg): 99 : 56 : 65 Pulse: 63 Datetime: 07/14/2023 23:03 Stage of : Datetime: 07/14/2023 22:59 Respirations: 16 Temperature (C): 36.6 Temperature Route: Oral Datetime: 07/14/2023 21:30 PAIN Pain Scale: 0 Datetime: 07/14/2023 21:27 COMMUNICATION Communication Comments: Notified DR C of BS 145. POC to give snack and metformin at this time Datetime: 07/14/2023 21:13 SpO2 (%): 97 Datetime: 07/14/2023 21:01 Medication Comments: pitocin 500 ml/hr Datetime: 07/14/2023 20:59 LaborFlag: Labor Datetime: 07/14/2023 20:56 UTERINE ACTIVITY Monitor Mode: External Monitor Interventions for UA: [place] Adjusted Frequency (min): 1.5-3.5 Quality: Strong Duration (sec): 50-90 Pattern: Normal: <= 5 Contractions in 10 Minutes Resting Tone (Palpate): Relaxed ASSESSMENT A Monitor Mode: External US Monitor Interventions for FHR: Ultrasound Adjusted FHR Baseline Rate : 130 Variability: Moderate 6-25 bpm Accelerations: 15X15 Decelerations: Variable Category: Category II Comments: susy decel noted during 1 min of pushing Datetime: 07/14/2023 20:51 VAGINAL EXAM Dilatation (cm): 10.0 Exam by: Dr Cayabyab Datetime: 07/14/2023 20:45 I/O Interventions: Straight Cath (ml) @ 50 Datetime: 07/14/2023 20:39 Patient Position/Activity: Left Lateral Datetime: 07/14/2023 20:35 Effacement (%): 95 Station: 2 Vaginal Exam Comments: Notified RAMSES Che RN asked her to notify C, she will Datetime: 07/14/2023 20:32 Epidural Procedure: Loading Dose Datetime: 07/14/2023 20:30 Pitocin Checklist: At Least 1 Acceleration of 15 bpm x 15 Seconds in 30 Minutes or Adequate Variabi lity; No More than 1 Late Deceleration Occurred in Past 30 Minutes; No More than 2 Variable Decelerat ions > 60 Seconds in Duration and decreasing >60 bpm in 30 minutes; No More than 5 Uterine Contractio ns in 10 Minutes for any 20 Minute Interval; Uterus Palpates Soft between Contractions Datetime: 07/14/2023 20:11 ANESTHESIA Epidural Positioning: Sitting Datetime: 07/14/2023 20:10 PROCEDURE TIME OUT Procedure Verify: Correct Patient Identity; Correct Side and Site are Marked; Accurate Procedure Co nsent Form; Agreement on Procedure to be Done; Correct Patient Position; Safety Precautions Based on Patient History or Medication Use Datetime: 07/14/2023 20:09 Anesthesia Comments: POLE SHAVER at bedside Datetime: 07/14/2023 20:00 PATIENT CARE IV/Blood Work: IV Bolus Started Datetime: 07/14/2023 19:57 Pain Presence: Intermittent Pain Type: Contraction Pain Location: Abdomen Pain Coping: Requesting Pain Medication or Epidural Datetime: 07/14/2023 19:56 Patient Care Comments: sitting on side of bed Datetime: 07/14/2023 19:30 Contraction Comments: folded 2x2 placed on toco pressure sensor. Pt DB with UC's. Datetime: 07/14/2023 19:20 Bedside Blood Glucose: 125 Datetime: 07/14/2023 18:35 MEDICATIONS Pitocin (milliunits): Increased to @ 10 Datetime: 07/14/2023 17:56 Pain Assessment Comments: POLE SHAVER Johnson at bedside with consent Datetime: 07/14/2023 17:46 Comfort Measures: Breathing/Relaxation Datetime: 07/14/2023 17:17 Membrane Status: Ruptured Membranes Rupture Method: Artificial Amniotic Fluid Color: Bloody Amniotic Fluid Amount: Small Datetime: 07/14/2023 10:00 FHR Baseline Changes: No Baseline Change Datetime: 07/14/2023 09:24 Cervical Ripening Agents: Cytotec @ Datetime: 07/14/2023 08:52 Vaginal Bleeding: None Cervix, Consistency: Moderate Cervix, Position: Midposition Datetime: 05/29/2023 17:09 Membranes Ruptured Date/Time: 07/14/2023 17:17 Amniotic Fluid Odor: Normal
== END 2023-07-15 22:41 | disposition home or self-care (01) | DRG 807 ==
LOC: WFO 08:06 → FBP 08:08
PROVIDERS: ADMIT Obstetrics & Gynecology; ATTEND Obstetrics & Gynecology
PROC: 10E0XZZ Delivery of Products of Conception, External Approach (ICD-10-PCS; principal; 2023-07-14)
PROC: 10907ZC Drainage of Amniotic Fluid, Therapeutic from Products of Conception, Via Natural or Artificial Opening (ICD-10-PCS; 2023-07-14)
PROC: 3E0134Z Introduction of Serum, Toxoid and Vaccine into Subcutaneous Tissue, Percutaneous Approach (ICD-10-PCS; 2023-07-14)
DX: O24.424 Gestational diabetes mellitus in childbirth, insulin controlled (principal); Z37.0 Single live birth; Z3A.39 39 weeks gestation of pregnancy; O69.81X0 Labor and delivery complicated by cord around neck, without compression, not applicable or unspecified; O99.02 Anemia complicating childbirth; D50.9 Iron deficiency anemia, unspecified; Z23 Encounter for immunization
CPT/HCPCS: 36415; 80053; 82728; 83036; 85025; 86850; 86900; 86901; A9270; J1750; J7120

== ENCOUNTER 2023-08-27 09:08 | Outpatient (CLI) | payer OTHER ==
[2023-08-27 09:27] LABS: HCT - HEMATOCRIT 44.8 % (37.0-47.0); MEAN CORPUSCULAR HEMOGLOBIN 24.2 pg (27.0-31.0); MEAN CORPUSCULAR HGB CONC 31.3 g/dL (32.0-36.0); MEAN CORPUSCULAR VOLUME 77.4 fL (81.0-99.0); MEAN PLATELET VOLUME 10.5 fL (7.9-10.8); RED BLOOD COUNT 5.79 10^6/uL (4.20-5.40); RED CELL DISTRIBUTION WIDTH 21.2 % (12.0-15.0); WHITE BLOOD COUNT 11.7 x10^3/uL (4.8-10.8)
[2023-08-27 10:39] LABS: BILIRUBIN,URINE NEGATIVE (NEGATIVE); GLUCOSE, URINE (UA) NEGATIVE (NEGATIVE); KETONES,URINE (UA) NEGATIVE (NEGATIVE); LEUKOCYTE ESTERASE, URINE NEGATIVE (NEGATIVE); NITRITE,URINE NEGATIVE (NEGATIVE); OCCULT BLOOD,URINE NEGATIVE (NEGATIVE); PROTEIN,URINE NEGATIVE (NEGATIVE); UROBILINOGEN,URINE 0.2 (NORMAL) E.U./dL (NORMAL)
[2023-08-27 11:06] LABS: BACTERIA,URINE Few /HPF (None Seen); CLARITY,URINE CLEAR (CLEAR); RBC,URINE 0-5 /HPF (0-5); SQUAMOUS EPITHELIAL CELL,UR MOD Squamous (<= Few); WBC,URINE 0-3 /HPF (0-5)
[2023-08-27 13:32] LABS: GTT GLUCOSE,FASTING 118 mg/dL (74-109)
== END 2023-08-27 09:09 | disposition home or self-care (01) ==
LOC: LAB 09:08
PROVIDERS: ATTEND Nurse Practitioner
DX: O24.419 Gestational diabetes mellitus in pregnancy, unspecified control (principal); O99.891 Other specified diseases and conditions complicating pregnancy; R61 Generalized hyperhidrosis; M54.9 Dorsalgia, unspecified
CPT/HCPCS: 36415; 81001; 82951; 84443; 85027; 87086